=== PATIENT | female | born 1970 | race Two or more races ===

== ENCOUNTER 2020-05-04 07:57 | Emergency (ER) | payer MEDICAID ==
[~2020-05-04] VITALS: Ht 152.4 cm; Wt 79.5 kg
[2020-05-04 07:59] VITALS: BP 130/74
[2020-05-04] MEDS ORDERED: KETOROLAC 30 MG/1 ML ONE (08:29)
[2020-05-04 08:58] LABS: BASOPHILS % (AUTO) 1 % (0-1); EOSINOPHILS % (AUTO) 2 % (1-7); LYMPHOCYTES % (AUTO) 38 % (22-44); MEAN CORPUSCULAR HEMOGLOBIN 30.7 pg (27.0-34.8); MEAN CORPUSCULAR HGB CONC 33.9 g/dL (32.4-35.8); MEAN PLATELET VOLUME 6.9 fL (7.4-10.4); MONOCYTES % (AUTO) 6 % (2-9); NEUTROPHILS % (AUTO) 52 % (42-75); PLATELET COUNT 355 x10^3/uL (130-400); RED BLOOD COUNT 4.11 x10^6/uL (3.82-5.3); RED CELL DISTRIBUTION WIDTH 14.7 % (9.6-15.2)
[2020-05-04] MEDS ORDERED: KETOROLAC 30 MG/1 ML IM ONE (09:00)
[2020-05-04 09:02] LABS: ALBUMIN 3.6 g/dL (3.4-5.0); ANION GAP 2 mmol/L (5-15); CALCIUM 8.6 mg/dL (8.5-10.1); CHLORIDE 110 mmol/L (98-107); CREATININE 0.79 mg/dL (0.55-1.02)
[2020-05-04 09:34] LABS: MD NO
[2020-05-04 10:14] LABS: TROPONIN I < 0.015 ng/mL (0.000-0.045)
== END 2020-05-04 11:00 | disposition home or self-care (01) ==
LOC: ED 09:24
DX: S16.1XXA Strain of muscle, fascia and tendon at neck level, initial encounter (principal); M25.512 Pain in left shoulder; R07.89 Other chest pain; Z87.891 Personal history of nicotine dependence; X58.XXXA Exposure to other specified factors, initial encounter; Y93.89 Activity, other specified; Y92.89 Other specified places as the place of occurrence of the external cause; Y99.8 Other external cause status
CPT/HCPCS: 36415; 71045; 73030; 80048; 82040; 84484; 85025; 93005; 96372; 99285; J1885